=== PATIENT | female | born 1990 | race Caucasian/White ===

== ENCOUNTER 2024-09-04 08:23 | Emergency (ER) | payer OTHER ==
[~2024-09-04] VITALS: Ht 165.1 cm; Wt 53.6 kg
[2024-09-04] MEDS ORDERED: PSEU30TA87 PO (10:35)
[2024-09-04] MEDS ORDERED: BENZ200C70 PO (10:35)
[2024-09-04] MEDS ORDERED: FLON1SPR NARES (10:35)
[2024-09-04 10:43] VITALS: BP 108/65; TEMP 100.2; O2SAT 96
== END 2024-09-04 10:45 | disposition home or self-care (01) ==
LOC: M ED 08:23
DX: J09.X2 Influenza due to identified novel influenza A virus with other respiratory manifestations (principal); Z88.1 Allergy status to other antibiotic agents; Z79.899 Other long term (current) drug therapy